=== PATIENT | male | born 1955 | race Caucasian/White ===

== ENCOUNTER 2022-01-31 12:45 | Emergency (ER) | payer MEDICARE ==
[~2022-01-31] VITALS: Ht 167.6 cm; Wt 53.1 kg
--- NOTE | 2022-01-31 12:51 | NUR ---
TO ER BED 16. BIB [facility] FOR RUE PAIN SINCE MONDAY, XRAY SHOWS HUMERAL NECK FX DONE YESTERDAY. VITALS ARE WITHIN NORMAL LIMITS. AWAITING MD ORDERS.
[2022-01-31] MEDS ORDERED: ARGI1POW13 PO (13:02)
[2022-01-31] MEDS ORDERED: MULT-24 PO (13:02)
[2022-01-31] MEDS ORDERED: THIA100T88 PO (13:02)
[2022-01-31] MEDS ORDERED: IBUP-1953 PO (13:02)
[2022-01-31] MEDS ORDERED: ZINC1CAP3 PO (13:02)
[2022-01-31] MEDS ORDERED: FOLI0.4T6 PO (13:02)
[2022-01-31] MEDS ORDERED: ASCO-495 PO (13:02)
[2022-01-31] MEDS ORDERED: ACET-868 PO (13:02)
[2022-01-31] MEDS ORDERED: AMIN30LI2 PO (13:02)
--- NOTE | 2022-01-31 14:06 | NUR ---
DR RUDD AT BEDSIDE FOR EVAL.
--- NOTE | 2022-01-31 15:25 | NUR ---
CALLED [facility] FOR TRANSPORT. ETA IS [phone]
--- NOTE | 2022-01-31 16:15 | NUR ---
PT TRANSPORTED TO BACK TO FACILITY. STABLE CONDITION.
[2022-01-31 17:25] VITALS: BP 126/84
== END 2022-01-31 17:28 | disposition home or self-care (01) ==
LOC: ER 12:48
DX: S42.211A Unspecified displaced fracture of surgical neck of right humerus, initial encounter for closed fracture (principal); Z79.899 Other long term (current) drug therapy; Y08.89XA Assault by other specified means, initial encounter; Y93.89 Activity, other specified; Y92.89 Other specified places as the place of occurrence of the external cause; Y99.8 Other external cause status
CPT/HCPCS: 73030-TC